=== PATIENT | male | born 1990 | race Caucasian/White ===

== ENCOUNTER 2017-02-19 21:14 | Emergency (ER) | payer MEDICARE, MEDICAID ==
[2017-02-19 21:23] VITALS: BP 130/79
--- NOTE | 2017-02-19 21:37 | EDM.PDOC ---
ED HPI GENERAL MEDICAL PROBLEM - General Chief Complaint: Eye Problems Stated Complaint: swollen eye Time Seen by Provider: 02/19/17 21:25 Source of Information: Reports: Patient History Limitations: Reports: No Limitations - History of Present Illness INITIAL COMMENTS - FREE TEXT/NARRATIVE: Pt states approx 3 hours ago he noticed his left eye beginning to swell and form a "round bump". No pain, blurred vision, or warmth. Does state it is tender to touch and is more red than normal. Denies hitting the eye, any irritation prior to the swelling or any insect bites. Onset: Today Onset Date: 02/19/17 Onset Time: 18:00 Location: Reports: Face Quality: Reports: Pressure Severity: Mild Worsens with: Reports: Other (pressing on eye ) - Related Data Allergies Allergy/AdvReac Type Severity Reaction Status Date / Time No Known Allergies Allergy Verified 02/19/17 21:24 Home Meds: Home Meds . [No Known Home Meds] 02/19/17 [History] Past Medical History - Past Health History Medical/Surgical History: Denies Medical/Surgical History Social & Family History - Tobacco Use Smoking Status *Q: Current Every Day Smoker Years of Tobacco use: 12 Packs/Tins Daily: 0.5 - Recreational Drug Use Recreational Drug Use: No ED ROS GENERAL - Review of Systems Review Of Systems: See Below Constitutional: Reports: No Symptoms HEENT: Reports: Eye Pain. Denies: Dental Pain, Ear Discharge, Ear Pain, Eye Discharge, Glasses, Hearing Loss, Nose Pain, Vertigo, Vision Change, Other ( swollen left eye "lump") Respiratory: Reports: No Symptoms Cardiovascular: Reports: No Symptoms ED EXAM GENERAL W FULL EYE - Physical Exam Exam: See Below Exam Limited By: No Limitations General Appearance: Alert, WD/WN, No Apparent Distress Eye Exam: Bilateral Eye: Normal Fundi, PERRL Eyelids: Right: Normal Appearance, Left: Stye Conjunctiva & Sclera: Bilateral: Normal Appearance Cornea Exam: Bilateral: Normal Appearance Extraocular Movements: Bilateral: Intact Pupils: Normal Accommodation Pupillary Size: Bilateral: 3 mm Pupillary Reaction: Bilateral: Brisk Respiratory/Chest: No Respiratory Distress, No Accessory Muscle Use, Chest Non- Tender Cardiovascular: Normal Peripheral Pulses, Regular Rate, Rhythm, No Edema, No Gallop Course - Vital Signs Last Recorded V/S: Last Vital Signs Temp 35.7 C 02/19/17 21:22 Pulse 112 H 02/19/17 21:22 Resp 14 02/19/17 21:22 BP 130/79 02/19/17 21:22 Pulse Ox 99 02/19/17 21:22 Departure - Departure Time of Disposition: 21:32 Disposition: Home, Self-Care 01 Condition: Good Clinical Impression: Hordeolum Qualifiers: Hordeolum type: externum Laterality: left Eyelid: upper Qualified Code(s): H00.014 - Hordeolum externum left upper eyelid - Discharge Information Instructions: Tayo Referrals: PCP,Unknown [Primary Care Provider] - 3 Days (Follow up with your PCP in 3 days if not better ) Forms: ED Department Discharge Additional Instructions: Use warm compress for 15 minutes 4 times a day Use eye drops for dry eye or discomfort Follow up with your PCP thursday if not feeling better Call or report to the ER if burred vision or seeing spots
== END 2017-02-19 21:45 | disposition home or self-care (01) ==
LOC: VM.ED 21:14
DX: H00.014 Hordeolum externum left upper eyelid (principal); F17.210 Nicotine dependence, cigarettes, uncomplicated
CPT/HCPCS: 99282; 99282-GF

== ENCOUNTER 2021-04-08 05:58 | Emergency (ER) | payer MEDICARE, MEDICAID ==
[2021-04-08 06:00] VITALS: BP 137/80; PULSE 100
--- NOTE | 2021-04-08 07:06 | EDM.PDOC ---
ED HPI GENERAL MEDICAL PROBLEM - General Chief Complaint: Laceration Stated Complaint: finger lac Time Seen by Provider: 04/08/21 06:00 Source of Information: Reports: Patient History Limitations: Reports: No Limitations - History of Present Illness INITIAL COMMENTS - FREE TEXT/NARRATIVE: Patient states he was sweeping the floor went down to strip picker blade on the floor and could not end of his finger approximately 45 minutes prior to arrival states he washed it out with warm soapy water in the bathtub could not get the area to quit bleeding. He has no other complaints at this time he denies any numbness tingling or loss of sensation Tetanus is up-to-date he was given 4 months ago he has no other complaints at this time Onset: Sudden Duration: Minutes: Location: Reports: Other (Left hand fourth finger DIP laceration) Severity: Mild Associated Symptoms: Reports: No Other Symptoms - Related Data Allergies Allergy/AdvReac Type Severity Reaction Status Date / Time bee stings Allergy Cannot Uncoded 05/20/17 22:24 Remember Home Meds: Home Meds . [No Known Home Meds] 02/19/17 [History] Past Medical History - Past Health History Medical/Surgical History: Denies Medical/Surgical History Social & Family History - Tobacco Use Tobacco Use Status *Q: Current Every Day Tobacco User Years of Tobacco use: 10 Packs/Tins Daily: 0.5 - Recreational Drug Use Recreational Drug Use: Yes Drug Use in Last 12 Months: Yes Recreational Drug Type: Reports: Marijuana/Hashish Recreational Drug Use Frequency: Daily ED ROS GENERAL - Review of Systems Review Of Systems: See Below Constitutional: Reports: No Symptoms Respiratory: Reports: No Symptoms Cardiovascular: Reports: No Symptoms Endocrine: Reports: No Symptoms GI/Abdominal: Reports: No Symptoms : Reports: No Symptoms Musculoskeletal: Reports: Other (See HPI) Skin: Reports: No Symptoms Neurological: Reports: No Symptoms Psychiatric: Reports: No Symptoms Hematologic/Lymphatic: Reports: No Symptoms ED EXAM, SKIN/RASH Exam: See Below Exam Limited By: No Limitations General Appearance: Alert, WD/WN, No Apparent Distress Throat/Mouth: Normal Inspection, Normal Lips, Normal Teeth, Normal Gums, Normal Voice, No Airway Compromise Head: Atraumatic Neck: Full Range of Motion Respiratory/Chest: No Respiratory Distress Extremities: Normal Inspection, Normal Range of Motion, Non-Tender Neurological: Alert, Oriented, CN II-XII Intact, Normal Cognition, Normal Gait, Normal Reflexes, No Motor/Sensory Deficits Psychiatric: Normal Affect, Normal Mood Skin: Warm, Dry, Intact, Normal Color, No Rash, Other Location, Skin: Other (1 cm x 0.3 mm x 0.3 mm flap laceration to the end of the fourth DIP patient has positive FDS FDP and extension with no issues normal opposition and abduction neurovascular intact positive cap refill nailbed is intact) Course - Vital Signs Text/Narrative:: The area was soaked with warm water and Betadine irrigated with Hibiclens and normal saline sterile field was created patient was given a digital block with 1 cc 0.5 lidocaine no epinephrine the area was closed with number of 5 simple interrupted sutures 5-0 Ethilon well approximated wound edges covered with Neos porin Xeroform Curlex and tube gauze patient was given wound instructions signs symptoms follow-up in clinic or return to the ER told to follow-up with primary care provider in 24 hours and have stitches removed in 7 to 10 days Last Recorded V/S: Last Vital Signs Temp 37.0 C 04/08/21 05:58 Pulse 100 04/08/21 05:58 Resp 18 04/08/21 05:58 BP 137/80 04/08/21 05:58 Pulse Ox 100 04/08/21 05:58 - Orders/Labs/Meds Meds: Medications Discontinued Medications Generic Name Dose Route Start Last Admin Trade Name Carissa PRN Reason Stop Dose Admin Lidocaine HCl Confirm 04/08/21 06:06 04/08/21 06:44 Lidocaine 1% 5 Ml Sdv Administered 04/08/21 06:07 5 ml Dose Administration 5 ml .ROUTE .STK-MED ONE Departure - Departure Time of Disposition: 07:00 Disposition: Home, Self-Care 01 Condition: Good Clinical Impression: Laceration of finger of left hand - Discharge Information *PRESCRIPTION DRUG MONITORING PROGRAM REVIEWED*: No *COPY OF PRESCRIPTION DRUG MONITORING REPORT IN PATIENT JEFFREY: No Instructions: Laceration Care, Adult, [id number] Referrals: PCP,None [Primary Care Provider] - Forms: ED Department Discharge Additional Instructions: Keep the area clean and dry wash it with warm soapy water twice a day for the next 7 to 10 days Plan Neosporin to the area twice a day for the next 7 days Follow-up with your primary care provider in the next 24 to 48 hours for wound recheck remove the stitches in 7 to 10 days watch for any signs of redness swelling drainage fever to the area or anything that does not feel normal follow-up with your primary care provider return here to the emergency room Sepsis Event Note (ED) - Focused Exam Vital Signs: Vital Signs Temp Pulse Resp BP Pulse Ox 04/08/21 05:58 37.0 C 100 18 137/80 100 - Problem List & Annotations (1) Laceration of finger of left hand SNOMED Code(s): 991394914, 95078601236412401 Code(s): S61.219A - LACERATION W/O FB OF UNSP FINGER W/O DAMAGE TO NAIL, INIT Status: Acute Current Visit: Yes
== END 2021-04-08 07:14 | disposition home or self-care (01) ==
LOC: VM.ED 05:58
DX: S61.215A Laceration without foreign body of left ring finger without damage to nail, initial encounter (principal); Z91.030 Bee allergy status; Z72.0 Tobacco use; W26.8XXA Contact with other sharp object(s), not elsewhere classified, initial encounter
CPT/HCPCS: 12001; 99282-25; 99283